=== PATIENT | male | born 1975 | race Caucasian/White ===

== ENCOUNTER 2016-08-07 06:12 | Inpatient (IN) | payer BC ==
--- NOTE | ~2016-08-07 | DS ---
Discharge Summary [place] [address] [address] NAME: OLLIE JACOBS : 73 STATUS : DIS IN PAT#: [id number] AGE: 41 ADM/REG DATE : 08/07/16 MR#: [id number] REPORT SERV DATE: 08/17/16 DICTATED BY: DATE: REPORT STATUS : Draft TRANSCRIBED BY: MODL DATE: 08/16/16 ADMISSION DATE: 08/07/2016 DISCHARGE DATE: 08/16/2016 ADDENDUM: This discharge took greater than 30 minutes due to medication reconciliation, followup, coordination as well as extensive education with the patient. GEOVANY/FRANKIE Rodger Coffey NP / [id number] CC: Mario Rodriguez MD
--- NOTE | ~2016-08-07 | DS ---
Discharge Summary [place] [address] [place]. [address] NAME: OLLIE JACOBS : 73 STATUS : DIS IN PAT#: [id number] AGE: 41 ADM/REG DATE : 08/07/16 MR#: [id number] REPORT SERV DATE: 08/17/16 DICTATED BY: DATE: REPORT STATUS : Draft TRANSCRIBED BY: MODL DATE: 08/16/16 ADMISSION DATE: 08/07/2016 DISCHARGE DATE: 08/16/2016 DISCHARGE DIAGNOSES: 1. Acute pancreatitis. 2. Hypertriglyceridemia. 3. Hypertension. 4. Nonalcoholic fatty liver disease. 5. Dyslipidemia. 6. Obesity with a body mass index of 36.9. 7. Hyponatremia, resolved. 8. Diabetes mellitus type 2 new diagnosis. CONSULTING PHYSICIANS: None. IMAGING: Includes CT of the abdomen and pelvis without contrast and CT of the abdomen and pelvis with contrast. With contrast was performed on 08/14/2016. Impression includes acute pancreatitis, moderate peripancreatic inflammation and fluid in the left abdomen and tracking along the perirenal fascia and into the left paracolic gutter. No organized pseudocyst at this point. No pancreatic necrosis, splenic vein thrombosis or splenic artery aneurysm. Trace left pleural effusion. These findings are all new since prior exam one week earlier. Hepatic steatosis without focal hepatic lesion. No calcified gallstones or gallbladder inflammation. No biliary obstruction was noted. The patient also had an ultrasound of the gallbladder, which demonstrated fatty infiltration of the liver. Gallbladder was normal in appearance. DISCHARGE MEDICATIONS: Include, Norvasc 5 mg p.o. daily, Lipitor 80 mg p.o. at bedtime, Lofibra 130 mg p.o. daily, Humalog 8 units subcu before meals, Humalog sliding scale, lisinopril 10 mg p.o. daily, Lopressor 25 mg p.o. b.i.d., niacin ER 250 mg p.o. b.i.d., Protonix 40 mg p.o. daily, Levemir 20 units subcu b.i.d. HOSPITAL COURSE/PROBLEM LIST: 1. Acute pancreatitis. This is demonstrated on the imaging above. Initially, the patient came in with left upper quadrant abdominal pain. It is radiating to his back. This is resolved since admission. The patient is asymptomatic at this time. He is also afebrile. The patient is requesting to go home. His lipase today was 948, slowly trending upward. However, the patient is asymptomatic and wants to go home. I discussed this with Dr. Mario Rodriguez, who concurs that the patient is safe to leave with close followup with GI and his PCP. The patient has not required pain medication in the last 24 to 48 hours. We will make an appointment for him with Dr. Anglin, journeyman mechanic in two weeks. We will also schedule a followup CT of the abdomen and pelvis with contrast in 6 weeks. 2. Hypertriglyceridemia. I will continue the patient on fenofibrate p.o. 3. Hypertension. This is controlled with amlodipine, metoprolol, and lisinopril. We will give the patient prescriptions for these medications. Currently, he does not have a Discharge Summary [address] [address] NAME: OLLIE JACOBS : 73 STATUS : DIS IN PAT#: [id number] AGE: 41 ADM/REG DATE : 08/07/16 MR#: [id number] REPORT SERV DATE: 08/17/16 DICTATED BY: DATE: REPORT STATUS : Draft TRANSCRIBED BY: MODL DATE: 08/16/16 primary care provider. However, he would like to stay in the [facility]. We will make an appointment with the primary care provider for him prior to discharge. I would like him to follow up in one to two weeks to ensure that his blood pressure is controlled. 4. Nonalcoholic fatty liver disease. Again, the patient is having a CT scan in six weeks, and he is following up with Dr. Anglin in two weeks. I discussed diet extensively with the patient and the need for healthier lifestyle. The patient has been eating fast food two to three times a day and he does not exercise. He agrees that he needs to change his lifestyle and reports he will do so. 5. Dyslipidemia. Continue the patient on Lipitor 80 mg daily. He will need follow up with PCP for further monitoring of his cholesterol levels. 6. Obesity with a body mass index of 36.9. Again, I discussed diet and exercise with the patient extensively. He agrees that his lifestyle needs to change. 7. Hyponatremia. Sodium was up to 137. Today, this is likely drug induced from hydrochlorothiazide which I discontinued yesterday and we will not continue on discharge considering it caused the hyponatremia as well as can possibly exacerbate his pancreatitis. 8. Diabetes mellitus type 2. The hemoglobin A1c of 10.8, this is a new diagnosis for the patient. adaptive physical educator has seen the patient. He understands how to check his blood sugars and administer his insulin. I will discharge him with Levemir 20 units subcu b.i.d. as well as Humalog prandial dosing and sliding scale. Again, the patient will need close followup with the primary care provider for further monitoring and management of his diabetes. The patient understands that if his lifestyle changes including diet and exercise that he possibly will not be an insulin-dependent diabetic forever and he reports he will make the necessary changes to improve his overall health. The patient is hemodynamically stable with heart rate of 94, blood pressure 159/93, respirations 16, temperature 97.5. He will follow up with Dr. Anglin in two weeks. We will make an appointment for him with primary care provider in one to two weeks prior to discharge. CLR/MODL Rodger Coffey NP / [id number] CC: Agustín Anglin M.D.
--- NOTE | ~2016-08-07 | HP ---
History And Physical [place] [address] [place]. [address] NAME: ALON JACOBS : 73 STATUS : ADM IN [facility]#: [id number] AGE: 41 ADM/REG DATE : 08/07/16 MR#: [id number] REPORT SERV DATE: 08/07/16 DICTATED BY: JUAN LUIS BLACK DATE: 08/07/16 REPORT STATUS : Draft TRANSCRIBED BY: MODPrateek DATE: 08/07/16 DATE OF ADMISSION: 08/07/2016 REASON FOR ADMISSION: Early pancreatitis. HISTORY OF PRESENT ILLNESS: This is a 41-year-old white male, who presented to the emergency room with extreme abdominal pain, it was in the left upper quadrant radiating around to the back. It was sharp in nature. No vomiting, no nausea. He has had abdominal pain all his life since he was in the college, had chronic heartburn and takes Tums, and every other medicine [id number] he has been able to take with no relief from Mylanta, Maalox, and Prilosec. He does take ranitidine as well. He presented to the emergency room with the abdominal pain, where CT scan of the abdomen was obtained that did show possibly early pancreatitis in the tail with some edema possibly there, the liver was infiltrated with fat. He does have a history consistent with appendectomy. His lipase was found to be 1139; however, his triglycerides were elevated commensurate with that at 2611. The patient is admitted to Observation. PAST MEDICAL HISTORY: He had appendectomy in the past. 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 MEDICATIONS: His home medications are minimal including ranitidine and Tums. He has not had much medical contacts, and had not been ill very much in the past. He does have a history of chronic heartburn. Blood sugar was also elevated at 316. SOCIAL HISTORY: He is . Lives with in [place], does not smoke cigarettes. 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 He graduated from [employer], where was a member of the [employer] playing euphonium. His also graduated from [employer] and works at [employer]. FAMILY HISTORY: Completely unknown as he was adopted. He has a brother, but no known health problems run in the family. REVIEW OF SYSTEMS: No headache, eye pain, double vision, nausea, vomiting, or diarrhea. No fits, seizures, convulsions, or unilateral weakness. He has had no chest pain. He does have the abdominal pain. Elevated blood sugars, new insight. No fever, chills, night sweats, melena, or hematemesis. No weight loss, although 5 pounds in the last two months. No fits, seizures, convulsions, fever, chills, or night sweats. History And Physical [address] [address] NAME: ALON JACOBS : 73 STATUS : ADM IN [facility]#: [id number] AGE: 41 ADM/REG DATE : 08/07/16 MR#: [id number] REPORT SERV DATE: 08/07/16 DICTATED BY: JUAN LUIS BLACK DATE: 08/07/16 REPORT STATUS : Draft TRANSCRIBED BY: FRANKIE DATE: 08/07/16 The remainder of the review of systems is negative. PHYSICAL EXAMINATION: VITAL SIGNS: Blood pressure 132/72, with a heart rate of 75, respiratory rate 18, afebrile. Oxygen saturation 97%. HEENT: EOMI. Sclerae clear. Conjunctivae pink. NECK: No bruit without any JVD. CHEST: Clear to A and P. HEART: Regular S1, S2 without murmur, rub, or click. ABDOMEN: Soft, somewhat tender in the left upper quadrant. Bowel sounds are positive. EXTREMITIES: Have no edema. Distal pulses are intact in dorsalis pedis and posterior tibial. NEUROLOGIC: DTRs are equal and symmetric in the knees and ankles bilaterally. Coordination is intact. He is symmetric neurologically. SKIN: Walker appearance. No specific rash, ecchymosis, or bruising. LYMPHATICS: There is no adenopathy palpable. LABORATORY DATA: CT scan as described above. Leukocytosis, white count 12.1, likely stress. Hemoglobin 15.9, hematocrit 43.3, and platelets 236,000. Blood sugar was 316. Creatinine 1.39. Sodium 134, CO2 is 23, potassium 4.1, and cholesterol was 258. The LDL was 22, the triglycerides of 2611. Liver tests were normal with a lipase of 1071. Urinalysis showed glucose greater than 500 mg percent. No ketones. Specific gravity of 1.037. ASSESSMENT: 1. Pancreatitis, likely by chemical, on CT, likely mild. 2. Chronic heartburn with self-treatment. No particular diagnosis in the past. 3. Newly diagnosed diabetes type 2. Nonketotic with glycosuria and elevated blood sugar. 4. Fatty liver, likely secondary to diabetes. 5. Hypertriglyceridemia, likely the source aggravating the pancreas. We will try to bring it down by starting metformin 500 mg p.o. b.i.d. Add heparin subcu rather than using Lovenox and try low-dose niacin for a rapid drop. In addition, we will add a PPI and Carafate for the chronic abdominal pain and heartburn. We will check hemoglobin A1c for diagnostic comparison to the blood glucose and start sliding scale level 1 insulin. DB/MODL Juan Luis Black M.D. / [id number] CC: Alon Saenz Jr, MD
[2016-08-07 07:24] LABS: A/G RATIO 0.9 (0.7-1.9); ALBUMIN 3.9 G/DL (3.5-5.0); ALKALINE PHOSPHATASE 91 U/L (45-117); BUN (BLOOD UREA NITROGEN) 9 MG/DL (6-23); CALCIUM, SERUM 9.7 MG/DL (8.5-10.4); DIRECT BILIRUBIN 0.1 MG/DL (0.0-0.4); GLOBULIN 4.4 G/DL (2.5-4.1); INDIRECT BILIRUBIN(NOT ORDER) 0.5 MG/DL (0.1-0.9); SODIUM, SERUM 134 MMOL/L (135-148); TOTAL BILIRUBIN 0.6 MG/DL (0-1.2); TOTAL PROTEIN 8.3 G/DL (6.0-8.5)
[2016-08-07 07:25] LABS: BASOPHILS 0.3 %; BASOPHILS ABSOLUTE 0.04 10/3/uL (0.0-0.16); CO2 (CARBON DIOXIDE) 23 MMOL/L (24-34); EOSINOPHILS 1.2 %; EOSINOPHILS ABSOLUTE 0.14 10/3/uL (0.0-0.53); GLUCOSE, SERUM 316 MG/DL (60-99); HEMATOCRIT 43.3 % (40.0-51.0); IMMATURE GRANULOCYTES 0.4 %; IMMATURE GRANULOCYTES ABSOLUTE 0.05 10/3/uL (0.0-0.11); LYMPHOCYTES 8.5 %; LYMPHOCYTES ABSOLUTE 1.03 10/3/uL (0.67-4.30); MEAN CORPUSCULAR VOLUME 80.8 fL (80-100); MEAN PLATELET VOLUME 11.4 fL (9.2-13.0); MONOCYTES ABSOLUTE 1.57 10/3/uL (0.21-1.20); NEUTROPHILS 76.6 %; NEUTROPHILS ABSOLUTE 9.26 10/3/uL (2.02-8.40); PLATELET COUNT 236 10/3/uL (150-400); POTASSIUM, SERUM 4.1 MMOL/L (3.5-5.3); RBC DISTRIBUTION WIDTH 12.9 % (12.0-16.0); RED CELL COUNT 5.36 10/6/uL (4.7-6.1)
[2016-08-07 07:26] LABS: CHLORIDE, SERUM 98 MMOL/L (96-112); SGOT(AST) 23 U/L (5-40); SGPT(ALT) 30 U/L (5-65); WHITE BLOOD CELLS 12.1 10/3/uL (4.5-10.5)
[2016-08-07 07:27] LABS: CREATININE 1.39 MG/DL (0.70-1.30); ER CBC TAT 0 Hrs 52 Mins; GFR AFRICAN AMERICAN 72 ML/MIN (>=60); GFR NON AFRICAN AMERICAN 62 ML/MIN (>=60)
[2016-08-07 07:28] LABS: HEMOGLOBIN 15.9 g/dL (13.6-17.8)
[2016-08-07 07:29] LABS: MANUAL DIFF NO %; MEAN CORPUS HGB CONC 36.5 g/dL (32.0-36.0); MEAN CORPUSCULAR HEMOGLOB 29.5 pg (26.0-34.0)
[2016-08-07] MEDS ORDERED: TUMSROLL PO (08:15)
[2016-08-07] MEDS ORDERED: ADVIL PO (08:15)
[2016-08-07] MEDS ORDERED: ZANTAC 75 PO (08:16)
[2016-08-07 08:45] LABS: CHOLESTEROL 258 MG/DL (< 200); HDL CHOLESTEROL 22 MG/DL (> 39); NON-HDL CHOLESTEROL 236 MG/DL (< 160); TRIGLYCERIDE 2611 MG/DL (< 150)
[2016-08-07 08:46] LABS: CHOL/HDL RATIO(NOT ORDER) 11.7 (0-5)
[2016-08-07 09:09] LABS: ASCORBIC ACID (UR NOT ORDER) NEG (NEG); BILIRUBIN, URINE NEGATIVE (NEG); KETONE, URINE NEGATIVE (NEG); LEUKOCYTE ESTERASE(NOT OR NEG (NEG); NITRITE (URINE) NEG (NEG); WBC (NOT ORDERED) (RFLEX) < 1 (0-5)
[2016-08-07 12:41] LABS: BUN (BLOOD UREA NITROGEN) 12 MG/DL (6-23); CALCIUM, SERUM 9.7 MG/DL (8.5-10.4); GLUCOSE, SERUM 276 MG/DL (60-99); POTASSIUM, SERUM 4.1 MMOL/L (3.5-5.3); SODIUM, SERUM 135 MMOL/L (135-148)
[2016-08-07 12:42] LABS: CHLORIDE, SERUM 89 MMOL/L (96-112); CO2 (CARBON DIOXIDE) 16 MMOL/L (24-34)
[2016-08-07 12:43] LABS: CREATININE 1.18 MG/DL (0.70-1.30); GFR AFRICAN AMERICAN 88 ML/MIN (>=60); GFR NON AFRICAN AMERICAN 76 ML/MIN (>=60)
[2016-08-08 09:08] LABS: CHLORIDE, SERUM 94 MMOL/L (96-112); SODIUM, SERUM 128 MMOL/L (135-148)
[2016-08-08 09:09] LABS: POTASSIUM, SERUM 4.6 MMOL/L (3.5-5.3); TRIGLYCERIDE 3843 MG/DL (< 150)
[2016-08-08 09:10] LABS: BUN (BLOOD UREA NITROGEN) 10 MG/DL (6-23); CO2 (CARBON DIOXIDE) 18 MMOL/L (24-34); CREATININE 0.89 MG/DL (0.70-1.30); GFR AFRICAN AMERICAN 122 ML/MIN (>=60); GFR NON AFRICAN AMERICAN 105 ML/MIN (>=60); GLUCOSE, SERUM 282 MG/DL (60-99)
[2016-08-08 10:00] LABS: A/G RATIO 0.8 (0.7-1.9); ALBUMIN 3.3 G/DL (3.5-5.0); ALKALINE PHOSPHATASE 69 U/L (45-117); CALCIUM, SERUM 8.4 MG/DL (8.5-10.4); GLOBULIN 3.9 G/DL (2.5-4.1); SGOT(AST) 40 U/L (5-40); SGPT(ALT) 19 U/L (5-65); TOTAL BILIRUBIN 1.3 MG/DL (0-1.2); TOTAL PROTEIN 7.2 G/DL (6.0-8.5)
[2016-08-09 06:02] LABS: BASOPHILS 0.1 %; BASOPHILS ABSOLUTE 0.01 10/3/uL (0.0-0.16); EOSINOPHILS 0 %; HEMATOCRIT 42.6 % (40.0-51.0); HEMOGLOBIN 14.8 g/dL (13.6-17.8); IMMATURE GRANULOCYTES 0.6 %; IMMATURE GRANULOCYTES ABSOLUTE 0.08 10/3/uL (0.0-0.11); LYMPHOCYTES 5.1 %; LYMPHOCYTES ABSOLUTE 0.73 10/3/uL (0.67-4.30); MANUAL DIFF NO %; MEAN CORPUS HGB CONC 34.7 g/dL (32.0-36.0); MEAN CORPUSCULAR HEMOGLOB 28.7 pg (26.0-34.0); MEAN CORPUSCULAR VOLUME 82.6 fL (80-100); MEAN PLATELET VOLUME 11.8 fL (9.2-13.0); MONOCYTES 5.7 %; MONOCYTES ABSOLUTE 0.81 10/3/uL (0.21-1.20); NEUTROPHILS 88.5 %; PLATELET COUNT 183 10/3/uL (150-400); RBC DISTRIBUTION WIDTH 12.9 % (12.0-16.0); RED CELL COUNT 5.16 10/6/uL (4.7-6.1); WHITE BLOOD CELLS 14.3 10/3/uL (4.5-10.5)
[2016-08-09 09:43] LABS: ALKALINE PHOSPHATASE 66 U/L (45-117); CALCIUM, SERUM 7.7 MG/DL (8.5-10.4); CHLORIDE, SERUM 103 MMOL/L (96-112); CREATININE 0.73 MG/DL (0.70-1.30); GFR AFRICAN AMERICAN 133 ML/MIN (>=60); GFR NON AFRICAN AMERICAN 114 ML/MIN (>=60); POTASSIUM, SERUM 3.9 MMOL/L (3.5-5.3); SGPT(ALT) 15 U/L (5-65); TOTAL PROTEIN 6.3 G/DL (6.0-8.5)
[2016-08-09 09:46] LABS: A/G RATIO 0.7 (0.7-1.9); ALBUMIN 2.6 G/DL (3.5-5.0); BUN (BLOOD UREA NITROGEN) 6 MG/DL (6-23); CO2 (CARBON DIOXIDE) 24 MMOL/L (24-34); GLOBULIN 3.7 G/DL (2.5-4.1); GLUCOSE, SERUM 206 MG/DL (60-99); SODIUM, SERUM 135 MMOL/L (135-148); TOTAL BILIRUBIN 0.6 MG/DL (0-1.2); TRIGLYCERIDE 906 MG/DL (< 150)
[2016-08-09 09:47] LABS: SGOT(AST) 17 U/L (5-40)
[2016-08-10 05:47] LABS: BASOPHILS 0.1 %; BASOPHILS ABSOLUTE 0.01 10/3/uL (0.0-0.16); EOSINOPHILS 0.2 %; EOSINOPHILS ABSOLUTE 0.02 10/3/uL (0.0-0.53); HEMATOCRIT 39.2 % (40.0-51.0); HEMOGLOBIN 13.8 g/dL (13.6-17.8); IMMATURE GRANULOCYTES 0.4 %; IMMATURE GRANULOCYTES ABSOLUTE 0.05 10/3/uL (0.0-0.11); LYMPHOCYTES 7.8 %; LYMPHOCYTES ABSOLUTE 0.97 10/3/uL (0.67-4.30); MEAN CORPUS HGB CONC 35.2 g/dL (32.0-36.0); MEAN CORPUSCULAR HEMOGLOB 28.9 pg (26.0-34.0); MEAN CORPUSCULAR VOLUME 82.2 fL (80-100); MEAN PLATELET VOLUME 10.9 fL (9.2-13.0); MONOCYTES 6.9 %; MONOCYTES ABSOLUTE 0.86 10/3/uL (0.21-1.20); NEUTROPHILS 84.6 %; NEUTROPHILS ABSOLUTE 10.54 10/3/uL (2.02-8.40); PLATELET COUNT 185 10/3/uL (150-400); RED CELL COUNT 4.77 10/6/uL (4.7-6.1); WHITE BLOOD CELLS 12.5 10/3/uL (4.5-10.5)
[2016-08-10 06:00] LABS: MANUAL DIFF NO %
[2016-08-10 06:11] LABS: A/G RATIO 0.5 (0.7-1.9); ALBUMIN 2.2 G/DL (3.5-5.0); ALKALINE PHOSPHATASE 70 U/L (45-117); BUN (BLOOD UREA NITROGEN) 5 MG/DL (6-23); CALCIUM, SERUM 8.5 MG/DL (8.5-10.4); CHLORIDE, SERUM 100 MMOL/L (96-112); CO2 (CARBON DIOXIDE) 26 MMOL/L (24-34); CREATININE 0.88 MG/DL (0.70-1.30); GFR AFRICAN AMERICAN 123 ML/MIN (>=60); GFR NON AFRICAN AMERICAN 106 ML/MIN (>=60); GLUCOSE, SERUM 170 MG/DL (60-99); POTASSIUM, SERUM 3.4 MMOL/L (3.5-5.3); SGOT(AST) 11 U/L (5-40); SGPT(ALT) 10 U/L (5-65); SODIUM, SERUM 134 MMOL/L (135-148); TOTAL BILIRUBIN 0.6 MG/DL (0-1.2); TOTAL PROTEIN 6.8 G/DL (6.0-8.5)
[2016-08-10 06:12] LABS: GLOBULIN 4.6 G/DL (2.5-4.1)
[2016-08-10 08:28] LABS: TRIGLYCERIDE 708 MG/DL (< 150)
[2016-08-11 06:38] LABS: BASOPHILS 0.2 %; BASOPHILS ABSOLUTE 0.02 10/3/uL (0.0-0.16); EOSINOPHILS 0.5 %; EOSINOPHILS ABSOLUTE 0.05 10/3/uL (0.0-0.53); HEMATOCRIT 36.6 % (40.0-51.0); HEMOGLOBIN 12.7 g/dL (13.6-17.8); IMMATURE GRANULOCYTES 0.3 %; IMMATURE GRANULOCYTES ABSOLUTE 0.03 10/3/uL (0.0-0.11); LYMPHOCYTES 10.2 %; LYMPHOCYTES ABSOLUTE 1.05 10/3/uL (0.67-4.30); MEAN CORPUS HGB CONC 34.7 g/dL (32.0-36.0); MEAN CORPUSCULAR HEMOGLOB 28.5 pg (26.0-34.0); MEAN CORPUSCULAR VOLUME 82.2 fL (80-100); MEAN PLATELET VOLUME 10.9 fL (9.2-13.0); MONOCYTES 7.4 %; MONOCYTES ABSOLUTE 0.76 10/3/uL (0.21-1.20); NEUTROPHILS 81.4 %; NEUTROPHILS ABSOLUTE 8.39 10/3/uL (2.02-8.40); PLATELET COUNT 201 10/3/uL (150-400); RBC DISTRIBUTION WIDTH 13.3 % (12.0-16.0); RED CELL COUNT 4.45 10/6/uL (4.7-6.1); WHITE BLOOD CELLS 10.3 10/3/uL (4.5-10.5)
[2016-08-11 06:39] LABS: MANUAL DIFF NO %
[2016-08-11 06:52] LABS: A/G RATIO 0.5 (0.7-1.9); ALBUMIN 2.2 G/DL (3.5-5.0); ALKALINE PHOSPHATASE 78 U/L (45-117); BUN (BLOOD UREA NITROGEN) 7 MG/DL (6-23); CHLORIDE, SERUM 101 MMOL/L (96-112); CO2 (CARBON DIOXIDE) 27 MMOL/L (24-34); CREATININE 0.79 MG/DL (0.70-1.30); GFR AFRICAN AMERICAN 128 ML/MIN (>=60); GFR NON AFRICAN AMERICAN 111 ML/MIN (>=60); GLOBULIN 4.7 G/DL (2.5-4.1); GLUCOSE, SERUM 166 MG/DL (60-99); POTASSIUM, SERUM 3.4 MMOL/L (3.5-5.3); SGOT(AST) 20 U/L (5-40); SGPT(ALT) 12 U/L (5-65); SODIUM, SERUM 134 MMOL/L (135-148); TOTAL BILIRUBIN 0.6 MG/DL (0-1.2); TOTAL PROTEIN 6.9 G/DL (6.0-8.5); TRIGLYCERIDE 627 MG/DL (< 150)
[2016-08-11 13:53] LABS: POTASSIUM, SERUM 3.4 MMOL/L (3.5-5.3)
[2016-08-12 06:39] LABS: BASOPHILS 0.2 %; BASOPHILS ABSOLUTE 0.02 10/3/uL (0.0-0.16); EOSINOPHILS 1.1 %; HEMATOCRIT 37.7 % (40.0-51.0); HEMOGLOBIN 12.7 g/dL (13.6-17.8); IMMATURE GRANULOCYTES 0.4 %; IMMATURE GRANULOCYTES ABSOLUTE 0.04 10/3/uL (0.0-0.11); LYMPHOCYTES 13.6 %; LYMPHOCYTES ABSOLUTE 1.21 10/3/uL (0.67-4.30); MEAN CORPUS HGB CONC 33.7 g/dL (32.0-36.0); MEAN CORPUSCULAR HEMOGLOB 28.3 pg (26.0-34.0); MEAN PLATELET VOLUME 10.1 fL (9.2-13.0); MONOCYTES 7.3 %; MONOCYTES ABSOLUTE 0.65 10/3/uL (0.21-1.20); NEUTROPHILS 77.4 %; NEUTROPHILS ABSOLUTE 6.88 10/3/uL (2.02-8.40); PLATELET COUNT 232 10/3/uL (150-400); RBC DISTRIBUTION WIDTH 13.2 % (12.0-16.0); RED CELL COUNT 4.49 10/6/uL (4.7-6.1); WHITE BLOOD CELLS 8.9 10/3/uL (4.5-10.5)
[2016-08-12 06:41] LABS: MANUAL DIFF NO %
[2016-08-12 06:51] LABS: A/G RATIO 0.5 (0.7-1.9); ALBUMIN 2.4 G/DL (3.5-5.0); BUN (BLOOD UREA NITROGEN) 5 MG/DL (6-23); CALCIUM, SERUM 8.8 MG/DL (8.5-10.4); CHLORIDE, SERUM 105 MMOL/L (96-112); CO2 (CARBON DIOXIDE) 24 MMOL/L (24-34); CREATININE 0.81 MG/DL (0.70-1.30); GFR AFRICAN AMERICAN 127 ML/MIN (>=60); GFR NON AFRICAN AMERICAN 110 ML/MIN (>=60); GLOBULIN 4.6 G/DL (2.5-4.1); GLUCOSE, SERUM 179 MG/DL (60-99); POTASSIUM, SERUM 3.5 MMOL/L (3.5-5.3); SGOT(AST) 24 U/L (5-40); SGPT(ALT) 13 U/L (5-65); SODIUM, SERUM 137 MMOL/L (135-148); TOTAL BILIRUBIN 0.6 MG/DL (0-1.2)
[2016-08-12 06:53] LABS: ALKALINE PHOSPHATASE 92 U/L (45-117)
[2016-08-12 15:03] LABS: TRIGLYCERIDE 507 MG/DL (< 150)
[2016-08-13 06:34] LABS: BASOPHILS 0.2 %; BASOPHILS ABSOLUTE 0.02 10/3/uL (0.0-0.16); EOSINOPHILS 1.5 %; EOSINOPHILS ABSOLUTE 0.14 10/3/uL (0.0-0.53); HEMATOCRIT 37.3 % (40.0-51.0); HEMOGLOBIN 12.8 g/dL (13.6-17.8); IMMATURE GRANULOCYTES 0.5 %; IMMATURE GRANULOCYTES ABSOLUTE 0.05 10/3/uL (0.0-0.11); LYMPHOCYTES 11.5 %; LYMPHOCYTES ABSOLUTE 1.08 10/3/uL (0.67-4.30); MEAN CORPUS HGB CONC 34.3 g/dL (32.0-36.0); MEAN CORPUSCULAR HEMOGLOB 28.4 pg (26.0-34.0); MEAN CORPUSCULAR VOLUME 82.9 fL (80-100); MONOCYTES 8.6 %; MONOCYTES ABSOLUTE 0.81 10/3/uL (0.21-1.20); NEUTROPHILS 77.7 %; NEUTROPHILS ABSOLUTE 7.33 10/3/uL (2.02-8.40); PLATELET COUNT 232 10/3/uL (150-400); WHITE BLOOD CELLS 9.4 10/3/uL (4.5-10.5)
[2016-08-13 06:35] LABS: MANUAL DIFF NO %
[2016-08-13 06:51] LABS: A/G RATIO 0.5 (0.7-1.9); ALBUMIN 2.4 G/DL (3.5-5.0); ALKALINE PHOSPHATASE 96 U/L (45-117); BUN (BLOOD UREA NITROGEN) 6 MG/DL (6-23); CALCIUM, SERUM 8.6 MG/DL (8.5-10.4); CHLORIDE, SERUM 102 MMOL/L (96-112); CO2 (CARBON DIOXIDE) 28 MMOL/L (24-34); CREATININE 0.88 MG/DL (0.70-1.30); GFR AFRICAN AMERICAN 123 ML/MIN (>=60); GFR NON AFRICAN AMERICAN 106 ML/MIN (>=60); GLOBULIN 4.7 G/DL (2.5-4.1); GLUCOSE, SERUM 175 MG/DL (60-99); POTASSIUM, SERUM 3.6 MMOL/L (3.5-5.3); SGPT(ALT) 15 U/L (5-65); SODIUM, SERUM 135 MMOL/L (135-148); TOTAL PROTEIN 7.1 G/DL (6.0-8.5)
[2016-08-13 06:52] LABS: SGOT(AST) 28 U/L (5-40)
[2016-08-13 10:24] LABS: TRIGLYCERIDE 389 MG/DL (< 150)
[2016-08-14 06:44] LABS: BASOPHILS 0.2 %; BASOPHILS ABSOLUTE 0.02 10/3/uL (0.0-0.16); EOSINOPHILS 1.5 %; EOSINOPHILS ABSOLUTE 0.14 10/3/uL (0.0-0.53); HEMATOCRIT 38.2 % (40.0-51.0); HEMOGLOBIN 13.2 g/dL (13.6-17.8); IMMATURE GRANULOCYTES 1.1 %; LYMPHOCYTES 15.9 %; MEAN CORPUS HGB CONC 34.6 g/dL (32.0-36.0); MEAN CORPUSCULAR HEMOGLOB 28.5 pg (26.0-34.0); MEAN CORPUSCULAR VOLUME 82.5 fL (80-100); MEAN PLATELET VOLUME 10.1 fL (9.2-13.0); MONOCYTES 10.7 %; MONOCYTES ABSOLUTE 1.01 10/3/uL (0.21-1.20); NEUTROPHILS 70.6 %; NEUTROPHILS ABSOLUTE 6.67 10/3/uL (2.02-8.40); PLATELET COUNT 269 10/3/uL (150-400); RBC DISTRIBUTION WIDTH 12.9 % (12.0-16.0); RED CELL COUNT 4.63 10/6/uL (4.7-6.1); WHITE BLOOD CELLS 9.4 10/3/uL (4.5-10.5)
[2016-08-14 06:46] LABS: MANUAL DIFF NO %
[2016-08-14 07:12] LABS: A/G RATIO 0.5 (0.7-1.9); ALBUMIN 2.6 G/DL (3.5-5.0); ALKALINE PHOSPHATASE 101 U/L (45-117); BUN (BLOOD UREA NITROGEN) 9 MG/DL (6-23); CALCIUM, SERUM 9.1 MG/DL (8.5-10.4); CHLORIDE, SERUM 98 MMOL/L (96-112); CO2 (CARBON DIOXIDE) 26 MMOL/L (24-34); CREATININE 0.88 MG/DL (0.70-1.30); GFR AFRICAN AMERICAN 123 ML/MIN (>=60); GFR NON AFRICAN AMERICAN 106 ML/MIN (>=60); GLOBULIN 4.9 G/DL (2.5-4.1); GLUCOSE, SERUM 169 MG/DL (60-99); POTASSIUM, SERUM 3.7 MMOL/L (3.5-5.3); SGOT(AST) 22 U/L (5-40); SGPT(ALT) 14 U/L (5-65); SODIUM, SERUM 133 MMOL/L (135-148); TOTAL BILIRUBIN 0.9 MG/DL (0-1.2); TOTAL PROTEIN 7.5 G/DL (6.0-8.5); TRIGLYCERIDE 355 MG/DL (< 150)
[2016-08-15 07:46] LABS: BASOPHILS 0.3 %; BASOPHILS ABSOLUTE 0.03 10/3/uL (0.0-0.16); EOSINOPHILS 1.3 %; EOSINOPHILS ABSOLUTE 0.14 10/3/uL (0.0-0.53); HEMATOCRIT 40.7 % (40.0-51.0); HEMOGLOBIN 14.4 g/dL (13.6-17.8); IMMATURE GRANULOCYTES 0.8 %; IMMATURE GRANULOCYTES ABSOLUTE 0.09 10/3/uL (0.0-0.11); LYMPHOCYTES 15.5 %; MEAN CORPUS HGB CONC 35.4 g/dL (32.0-36.0); MEAN CORPUSCULAR HEMOGLOB 29.1 pg (26.0-34.0); MEAN CORPUSCULAR VOLUME 82.4 fL (80-100); MEAN PLATELET VOLUME 9.9 fL (9.2-13.0); MONOCYTES 9.6 %; MONOCYTES ABSOLUTE 1.06 10/3/uL (0.21-1.20); NEUTROPHILS 72.5 %; NEUTROPHILS ABSOLUTE 7.97 10/3/uL (2.02-8.40); PLATELET COUNT 307 10/3/uL (150-400); RBC DISTRIBUTION WIDTH 12.7 % (12.0-16.0); RED CELL COUNT 4.94 10/6/uL (4.7-6.1)
[2016-08-15 07:47] LABS: MANUAL DIFF NO %
[2016-08-15 08:09] LABS: A/G RATIO 0.5 (0.7-1.9); ALBUMIN 2.6 G/DL (3.5-5.0); ALKALINE PHOSPHATASE 101 U/L (45-117); BUN (BLOOD UREA NITROGEN) 10 MG/DL (6-23); CALCIUM, SERUM 9.8 MG/DL (8.5-10.4); CHLORIDE, SERUM 95 MMOL/L (96-112); CO2 (CARBON DIOXIDE) 25 MMOL/L (24-34); CREATININE 1.01 MG/DL (0.70-1.30); GFR AFRICAN AMERICAN 106 ML/MIN (>=60); GFR NON AFRICAN AMERICAN 91 ML/MIN (>=60); GLOBULIN 5.7 G/DL (2.5-4.1); GLUCOSE, SERUM 174 MG/DL (60-99); POTASSIUM, SERUM 3.5 MMOL/L (3.5-5.3); SGOT(AST) 27 U/L (5-40); SGPT(ALT) 12 U/L (5-65); SODIUM, SERUM 131 MMOL/L (135-148); TOTAL BILIRUBIN 0.8 MG/DL (0-1.2); TOTAL PROTEIN 8.3 G/DL (6.0-8.5); TRIGLYCERIDE 315 MG/DL (< 150)
[2016-08-16 05:52] LABS: BUN (BLOOD UREA NITROGEN) 13 MG/DL (6-23); CALCIUM, SERUM 9.5 MG/DL (8.5-10.4); CHLORIDE, SERUM 100 MMOL/L (96-112); CO2 (CARBON DIOXIDE) 25 MMOL/L (24-34); GFR AFRICAN AMERICAN 107 ML/MIN (>=60); GFR NON AFRICAN AMERICAN 92 ML/MIN (>=60); GLUCOSE, SERUM 157 MG/DL (60-99); POTASSIUM, SERUM 3.5 MMOL/L (3.5-5.3); SODIUM, SERUM 137 MMOL/L (135-148)
[2016-08-16] MEDS ORDERED: LOP25 PO (11:18)
[2016-08-16] MEDS ORDERED: NORV5 PO (11:18)
[2016-08-16] MEDS ORDERED: FENOFIBRATE PO (11:19)
[2016-08-16] MEDS ORDERED: LEVEMFLXPN SC (11:20)
[2016-08-16] MEDS ORDERED: PRIN10 PO (11:20)
[2016-08-16] MEDS ORDERED: HUMALOG KW200 UNIT/1 SQ (11:21)
[2016-08-16] MEDS ORDERED: PROTONIX PO (11:22)
[2016-08-16] MEDS ORDERED: SLO-NIACIN250 MG PO (11:22)
[2016-08-16] MEDS ORDERED: LIPITOR80 MG PO (11:22)
== END 2016-08-16 12:12 | disposition home or self-care (01) | DRG 439 ==
LOC: ER 06:12 → 5SO 08:01
PROVIDERS: Emergency Medicine; Hospitalist; Internal Medicine; Nurse Practitioner Acute Care
DX: K85.80 Other acute pancreatitis without necrosis or infection (principal); E87.1 Hypo-osmolality and hyponatremia; K76.0 Fatty (change of) liver, not elsewhere classified; E11.9 Type 2 diabetes mellitus without complications; E78.1 Pure hyperglyceridemia; E66.9 Obesity, unspecified; Z68.36 Body mass index [BMI] 36.0-36.9, adult
CPT/HCPCS: 74176; 74177; 76705; 80048; 80053; 80061; 81001; 82150; 82248; 82962; 83036; 83690; 84132; 84478; 85025; 96374; 96375; 99285; A9270-GY; J0360; J1170; J1885; J2405; J2930; J3480; Q9967